=== PATIENT | male | born 1985 | race Two or more races ===

== ENCOUNTER 2019-11-15 05:59 | Emergency (ER) | payer OTHER, SELFPAY ==
--- NOTE | 2019-11-15 | XR_ITS ---
EXAMINATION: XR KNEE, LEFT CLINICAL INFORMATION: Pain, swelling left knee. COMPARISON: None TECHNIQUE: The left knee is imaged in 4 views. FINDINGS: There is no acute or healing fracture, dislocation, or destructive process. There is small suprapatellar effusion. Hoffa's fat pad appears normal. There is no joint narrowing or erosive change or chondrocalcinosis. A benign appearing nonaggressive circumscribed oval sclerotic lesion is present in the distal femur at the diaphyseal metaphyseal junction measuring 1.5 x 1.1 x 0.7 cm. There is no associated mineralization or periostitis. No surrounding lucency. IMPRESSION: 1. Small suprapatellar effusion. No fracture, destructive process, or arthropathy. 2. Benign-appearing nonaggressive oval sclerotic lesion distal femur 1.5 x 1.1 x 0.7 cm of doubtful significance. Recommend correlation with past history pain in this area.
--- NOTE | 2019-11-15 | US_ITS ---
EXAMINATION: US VENOUS ULTRASOUND WITH DOPPLER LOWER EXTREMITY, LEFT CLINICAL INFORMATION: Left lower extremity pain, swelling. Assess for occult DVT. COMPARISON: Radiographs left knee 11/15/2019 TECHNIQUE: Ultrasound of the deep veins is performed from the hip to the calf with compression sonography and color and pulse Doppler assessment. Spectral analysis with color-flow imaging is performed. FINDINGS: There is normal venous compression and respiratory variation and augmented flow. The visualized common femoral vein, superficial femoral vein, profunda femoral vein, popliteal vein, and the trifurcation region shows no evidence of deep venous thrombosis. There is incidental duplicated superficial femoral vein mid thigh. There is a popliteal fossa cyst measuring 2.0 x 3.5 x 5.0 cm. IMPRESSION: 1. No DVT demonstrated in the left lower extremity. 2. Popliteal fossa cyst measuring 2.0 x 3.5 x 5.0 cm.
[2019-11-15 06:06] VITALS: BP 155/101; PULSE 87; RESP 18; TEMP 37; O2SAT 95; BMI 33.0
--- NOTE | 2019-11-15 06:30 | ED_ITS ---
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 has pain and swelling behind left knee complaint: knee injury Onset (ago): day(s) (2 days ago) Type of Injury: blunt Place: work Severity: moderate Related Data Previous Rx's Medication Instructions Recorded cyclobenzaprine 10 mg PO Q8H PRN #20 tab 11/15/19 ibuprofen 600 mg PO Q6-8H PRN #30 tab 11/15/19 Allergies Allergy/AdvReac Type Severity Reaction Status Date / Time No Known Allergies Allergy Unverified 11/01/19 15:46 Review of Systems Review of Systems: Constitutional : No Fever, No Chills ENT/Mouth : No Ear Pain, No Hoarseness, No sore throat Eyes: No Eye Pain, No Swelling, No Redness, No Foreign Body Cardiovascular : No Chest Pain, No SOB Respiratory : No Cough, No Dyspnea Gastrointestinal : No Nausea, No Vomiting, No Diarrhea, No abdominal Pain Genitourinary : No Dysuria, No Hematuria Musculoskeletal : positive joint pain, No Myalgias, positive Joint Swelling Skin : No Skin lacerations, No rash Neuro : No Weakness, No Numbness, No Paresthesias, No Loss of Consciousness, No Dizziness, No Headache Psych : No Anxiety/Panic, No Depression Heme/Lymph: no easy bruising, no Lymphadenopathy Endocrine : No Polyuria, No Polydipsia Neurologic: Denies Sensory deficit (Neuro) [facility] Past Medical History Medical History Asthma Social History Social History Alcohol intake: current Alcohol intake frequency: a few times a week Alcohol type: beer, wine and hard liquor Smoking Status: Former smoker Smoked in Last 30 Days: No Use of substances other than those prescribed or required for medical reasons: Refusing to respond Advance Directives: No Advance Directives Information Provided: No Physical Exam Vital Signs and I&O and Narrative: Vital Signs and I&O: Vital Signs Temp 98.6 F 11/15/19 06:06 Pulse 87 11/15/19 06:06 Resp 18 11/15/19 06:06 BP 155/101 H 11/15/19 06:06 Pulse Ox 95 11/15/19 06:06 Intake & Output 11/14/19 11/15/19 11/15/19 18:59 06:59 18:59 Weight 104.326 kg Body Mass Index 33.0 Const: General: cooperative and healthy appearing; No in distress Orientation/consciousness: oriented to person, oriented to place and oriented to time HENMT: Head: Yes normal to inspection General nose exam: Normal external nose present Eyes: General: appearance normal, both eyes and all related structures Eyelids: Yes eyelids normal Neck: Neck: Yes normal visual inspection and Yes full ROM Resp: Effort & Inspection: normal respiratory effort Auscultation: clear to auscultation bilaterally Cardio: Rate: regular rate Rhythm: regular rhythm GI: Inspection: Yes normal to inspection Palpation (GI): Soft to palpation and nontender Skin: General skin exam: no rashes or lesions noted Neuro: General: oriented to person, oriented to place and oriented to time Motor exam (neuro): 5/5 motor strength present throughout Sensory Exam: No Sensory deficit (Neuro) Extrem: Other: L knee pain at medial joint line mild effusion, no erythema no warmth, small boggy area in pop fossa, erythema almost appears to be confluent like 1st degree burn or abrasion, not consistent with infection Course Course Hospital Course: small effusion, has full ROM, no DVT stable for DC, compartments are soft and compressible MDM - Extremity Injury (Lower) MDM Narrative Medical decision making narrative: L knee pain posterior aspect following repetitive movements and trauma from fork lift bench - + abrasion vs burn not infected, NV intact, but area behind knee is boggy will need xray for trauma, US to r/o DVT, PO medicatinos, dispo per results and findings Discharge Plan Discharge Clinical Impression: Abrasion Effusion into joint Qualifiers: Effusion of joint location: knee Laterality: left Qualified Code(s): M25.462 - Effusion, left knee Pradhan cyst Qualifiers: Laterality: left Qualified Code(s): M71.22 - Synovial cyst of popliteal space [Pradhan], left knee Patient Disposition: Home, Self-Care Additional Instructions: wear kit wrap for the next 5 days, ice elevated and rest Prescriptions: New cyclobenzaprine 10 mg tablet 10 mg PO Q8H PRN (Reason: muscle spasm) Qty: 20 RF: 0 ibuprofen 600 mg tablet 600 mg PO Q6-8H PRN (Reason: pain) Qty: 30 RF: 0 Referrals: Veronica Escoto [Emergency Nurse] - 2 days (if not better by Tuesday) Stand Alone Forms: Work/School Release Interventions: ED Discharge Assessment Last Done: 11/15/19 10:38 Discharge Date/Time: 11/15/19 10:45
[2019-11-15] MEDS: Cyclobenzaprine HCl 10 MG TABLET PO (06:54)
== END 2019-11-15 10:45 | disposition home or self-care (01) ==
PROVIDERS: Emergency Provider Emergency Medicine
DX: S80.212A Abrasion, left knee, initial encounter (principal); R60.0 Localized edema; M71.22 Synovial cyst of popliteal space [Baker], left knee; X50.1XXA Overexertion from prolonged static or awkward postures, initial encounter; Y93.9 Activity, unspecified; Y92.9 Unspecified place or not applicable; Y99.0 Civilian activity done for income or pay; Z87.891 Personal history of nicotine dependence
CPT/HCPCS: 73564; 93971; 99283; 99284

== ENCOUNTER 2019-11-19 07:38 | Emergency (ER) | payer OTHER, SELFPAY ==
[2019-11-19 07:55] VITALS: BP 171/114; PULSE 83; RESP 16; TEMP 36.9; O2SAT 97; BMI 33.0
--- NOTE | 2019-11-19 08:32 | ED_ITS ---
HPI - Extremity Problem General Chief complaint: Wound/Laceration Stated complaint: knee pain discolored Time Seen by Provider: 11/19/19 08:25 Source: patient Mode of arrival: ambulatory Limitations: no limitations History of Present Illness HPI Narrative: patient noticed pain with erythematous rash behind left knee for last 6 days getting worse now was seen here at that time there was no redness no redness is coming up denies any insect bite no fever also patient complaining of right sciatic pain which is chronic patient was given ibuprofen and Flexeril when he visited last time which is not helping him Related Data Previous Rx's Medication Instructions Recorded cyclobenzaprine 10 mg PO Q8H PRN #20 tab 11/15/19 ibuprofen 600 mg PO Q6-8H PRN #30 tab 11/15/19 cephalexin [Keflex] 500 mg PO QID 10 Days #40 cap 11/19/19 doxycycline hyclate 100 mg PO BID #20 cap 11/19/19 tramadol 50 mg PO Q6H PRN #20 tab 11/19/19 Allergies Allergy/AdvReac Type Severity Reaction Status Date / Time No Known Allergies Allergy Verified 11/19/19 08:34 Review of Systems 2 Review of Systems: Yes all other systems are reviewed and are negative [facility] Past Medical History Medical History Asthma No known health problems Social History Social History Alcohol intake: current Alcohol intake frequency: a few times a month Alcohol type: beer, wine and hard liquor Smoking Status: Never smoker Use of substances other than those prescribed or required for medical reasons: No Advance Directives: No Advance Directives Information Provided: No Physical Exam Vital Signs and I&O and Narrative: Vital Signs and I&O: Vital Signs Temp 98.4 F 11/19/19 07:55 Pulse 83 11/19/19 07:55 Resp 16 11/19/19 07:55 BP 171/114 H 11/19/19 07:55 Pulse Ox 97 11/19/19 07:55 Intake & Output 11/18/19 11/19/19 11/19/19 18:59 06:59 18:59 Weight 104.326 kg Body Mass Index 33.0 Const: General: cooperative Orientation/consciousness: oriented to person, oriented to place and oriented to time Resp: Effort & Inspection: normal respiratory effort Auscultation: clear to auscultation bilaterally Cardio: Palpation: normal PMI Rate: regular rate Rhythm: regular rhythm Heart sounds: S1 normal heart sound present and S2 normal heart sound present Skin: Other: slight erythema in left popliteal area with local warmth no open wound clinically cellulitis Neuro: General: oriented to person, oriented to place and oriented to time Extrem: Other: slight tenderness in right sciatic notch straight leg raising This is my quick text.is negative both extremities no motor sensory deficit patient ambulating in steady gait Discharge Plan Discharge Clinical Impression: Sciatica of right side Cellulitis Qualifiers: Site of cellulitis: extremity Site of cellulitis of extremity: lower extremity Laterality: left Qualified Code(s): L03.116 - Cellulitis of left lower limb Patient Disposition: Home, Self-Care Instructions: Cellulitis (ED), Sciatica (ED) Prescriptions: New doxycycline hyclate 100 mg capsule 100 mg PO BID Qty: 20 RF: 0 cephalexin [Keflex] 500 mg capsule 500 mg PO QID 10 Days Qty: 40 RF: 0 tramadol 50 mg tablet 50 mg PO Q6H PRN (Reason: pain) Qty: 20 RF: 0 No Action cyclobenzaprine 10 mg tablet 10 mg PO Q8H PRN (Reason: muscle spasm) Qty: 20 RF: 0 ibuprofen 600 mg tablet 600 mg PO Q6-8H PRN (Reason: pain) Qty: 30 RF: 0
[2019-11-19] MEDS: cephALEXin 500 MG CAPSULE PO (08:53)
[2019-11-19 09:19] VITALS: BP 162/115; PULSE 83
[2019-11-19] MEDS: lisinopriL 20 MG TABLET PO (09:19)
== END 2019-11-19 09:30 | disposition home or self-care (01) ==
PROVIDERS: Emergency Provider Internal Medicine
DX: L03.116 Cellulitis of left lower limb (principal); M54.42 Lumbago with sciatica, left side; M54.41 Lumbago with sciatica, right side; M25.562 Pain in left knee
CPT/HCPCS: 99283; 99284

== ENCOUNTER 2019-12-15 04:21 | Emergency (ER) | payer OTHER, SELFPAY ==
[2019-12-15 04:24] VITALS: BP 160/87; PULSE 112; RESP 18; TEMP 36.2; O2SAT 100
[2019-12-15 04:52] VITALS: PULSE 100; RESP 20; TEMP 36.9; O2SAT 96; BMI 32.3
--- NOTE | 2019-12-15 05:03 | PC.NURSE ---
20 g l ac pt marina well no complications
--- NOTE | 2019-12-15 05:12 | ECG_ITS ---
Test Reason : PALPITATIONS Blood Pressure : / mmHG Vent. Rate : 103 BPM Atrial Rate : 103 BPM P-R Int : 140 ms QRS Dur : 110 ms QT Int : 340 ms P-R-T Axes : 042 -22 021 degrees QTc Int : 445 ms Sinus tachycardia Nonspecific T wave abnormality Voltage criteria for left ventricular hypertrophy Abnormal ECG When compared with ECG of 01-JUL-2017 14:53, Heart rate has increased Nonspecific T wave abnormality is new Referred By: Jessica Hill Electronically Signed By:MEMO JOHNS MD
--- NOTE | 2019-12-15 05:12 | XR_ITS ---
EXAMINATION: XR CHEST CLINICAL INFORMATION: Cough COMPARISON: 07/01/2017 TECHNIQUE: Frontal view of the chest was obtained. FINDINGS: Cardiac leads overlie the chest. The lungs are well expanded. There is no focal consolidation, edema, or effusion. No pneumothorax. The cardiomediastinal silhouette is within normal limits. No acute osseous abnormality. XR/XR chest 1V IMPRESSION: No acute pulmonary finding.
[2019-12-15] MEDS: 0.9 % Sodium Chloride 1,000 ML 1000 ML IV (05:24)
[2019-12-15] MEDS: Magnesium Hydrox/Alum Hydrox 30 ML ORAL.SUSP PO (05:26)
[2019-12-15] MEDS: Lidocaine HCl Viscous 2 % 15 ML SOLUTION 10 ML MUCOUS MEM (05:26)
--- NOTE | 2019-12-15 05:29 | ED_ITS ---
HPI - Chest Pain General Chief Complaint: Chest Pain Stated Complaint: Dizziness/Palpitations Time Seen by Provider: 12/15/19 05:11 Source: patient Mode of arrival: ambulatory Limitations: no limitations History of Present Illness HPI narrative: This is a 33-year-old male presents with mid sternal chest discomfort that started evening after he returned from work and he states radiates into his neck but is not associated with diaphoresis, dizziness, or shortness of breath. He states the pain has been coming and going and is exacerbated by deep inspiration but not by movement. He states that the pain initially started off as pressure but has become more burning in nature. Although he describes his breath catching when he takes a deep breath he otherwise denies that he become short of breath from walking . Otherwise, he denies fevers, chills, recent travel and states his last alcoholic drink was last night and describes it as 3 shots. Otherwise, he denies any drug or marijuana use But does smoke cigarettes. Related Data Previous Rx's Medication Instructions Recorded cyclobenzaprine 10 mg PO Q8H PRN #20 tab 11/15/19 ibuprofen 600 mg PO Q6-8H PRN #30 tab 11/15/19 cephalexin [Keflex] 500 mg PO QID 10 Days #40 cap 11/19/19 doxycycline hyclate 100 mg PO BID #20 cap 11/19/19 lisinopril-hydrochlorothiazide 1 tab PO DAILY #30 tab 11/19/19 tramadol 50 mg PO Q6H PRN #20 tab 11/19/19 omeprazole 40 mg PO DAILY #30 cap 12/15/19 Allergies Allergy/AdvReac Type Severity Reaction Status Date / Time No Known Allergies Allergy Verified 11/19/19 08:34 Review of Systems Review of Systems: Pertinent positives and negatives as stated in HPI 10 point review of systems is otherwise negative. [facility] Past Medical History Source: nursing notes reviewed Medical History Asthma No known health problems Social History Social History Alcohol intake: current Alcohol intake frequency: 3 or more drinks per day Alcohol type: hard liquor Smoking Status: Current every day smoker Smoked in Last 30 Days: Yes Use of substances other than those prescribed or required for medical reasons: No Advance Directives: No Advance Directives Information Provided: No Physical Exam Vital Signs: Vital Signs: Vital Signs Temp Pulse Resp BP Pulse Ox 12/15/19 04:52 98.4 F 100 20 96 12/15/19 04:24 97.2 F 112 H 18 160/87 H 100 Body Mass Index 32.3 VITAL SIGNS: Reviewed. GENERAL: Well developed, well nourished, in no acute distress. HEAD: Normocephalic/atraumatic, EYES: PERRLA, EOMI intact without pain, no nystagmus/pallor/icterus noted EARS: Ext canals without abnormality, TMs non-bulging and non-erythematous NOSE: Nares patent bilateral OROPHARYNX: no oral lesions noted, posterior pharynx clear and non-erythematous without noted tonsillar enlargement/erythema/exudates NECK: Supple, no adenopathy LUNGS: Normal breath sounds. No adventitious sounds or accessory muscle use. SpO2<100> CARDIOVASCULAR: Regular rate and rhythm without noted murmurs, no JVD or lower extremity edema. ABDOMEN: Soft, non-tender, non-distended with bowel sounds. No rigidity. No guarding. No palpable masses or hernias noted MUSCULOSKELETAL: No tenderness, deformities, or effusions noted on gross inspection. EXTREMITIES: No cyanosis, clubbing or edema. SKIN: Inspection of the skin reveals no rashes, ulcerations, jaundice, pallor, or petechiae. NEUROLOGIC: Alert and oriented x 4. Strength and sensation to light touch were grossly intact x 4. Course Course Course Narrative: Is a 33-year-old male with history and clinical presentation consistent with most likely acid reflux/ gastritis/or pancreatiist but will rule out pneumonia, PE, ischemic cardiac etiologies. On review of all investigations there is no evidence to suggest pneumonia, pancreatitis, PE, or ischemic cardiac etiology. Suspect that this may be gastritis in etiology. All results and findings were discussed with patient at bedside. He was encouraged to follow up with his primary care provider and is declined detox at this time. MDM - Chest Pain Lab Data Result diagrams: 12/15/19 05:53 12/15/19 05:53 Labs: Lab Results 12/15/19 12/15/19 12/15/19 Range/Units 05:53 05:53 05:53 WBC 10.7 (4.8-10.8) X10*3/uL RBC 4.61 (4.60-5.80) X10*6/uL Hgb 15.7 (14.0-18.0) g/dl Hct 43.1 (42-52) % MCV 93.5 (80-98) fL MCH 34.1 H (27.0-33.0) pg MCHC 36.4 H (31.0-36.0) g/dl RDW 11.3 (11.0-16.0) % Plt Count 327 (160-400) X10*3/uL MPV 10.9 (9.4-12.4) fL Immature Gran % (Auto) 0.4 (0.0-0.4) % Neut % (Auto) 46.4 (45-73) % Lymph % (Auto) 44.7 H (20-40) % [place] % (Auto) 7.3 (2-11) % Eos % (Auto) 0.7 (0-4) % Baso % (Auto) 0.5 (0-2) % Lymph # (Auto) 4.8 (1.2-4.9) X10*3/uL [place] # (Auto) 0.8 (0.1-1.2) X10*3/uL Eos # (Auto) 0.1 (0.0-0.4) X10*3/uL Baso # (Auto) 0.1 (0.0-0.2) X10*3/uL Abs Immat Gran (auto) 0.04 H (0.00-0.03) X10*3/uL Absolute Neuts (auto) 5.0 (2.0-8.3) X10*3/uL Absolute Nucleated RBC 0.000 (0.0-0.012) X10*3/uL Nucleated RBC % (auto) 0.0 (0.0-0.2) /100WBC D-Dimer NG/ML Sodium 136 (135-145) mmol/L Potassium 3.6 (3.3-5.1) mmol/l Chloride 98 (96-108) mmol/L Carbon Dioxide 26 (22-29) mmol/L Anion Gap 16 (12-20) BUN 13 (9-16) mg/dL Creatinine 0.81 (0.5-1.4) mg/dL Estim Creat Clear Calc 158.1 Estimated GFR > 60 Random Glucose 74 (60-115) mg/dL Calcium 9.0 (8.4-10.2) mg/dL Magnesium 2.2 (1.6-2.6) mg/dL Total Bilirubin 0.7 (0.0-1.0) mg/dL AST 44 H (5-37) U/L ALT 73 H (0-40) U/L Alkaline Phosphatase 45 (39-117) U/L Troponin I High Sens (<3.5-35.0) ng/L Total Protein 8.5 H (6.5-8.0) g/dL Albumin 4.8 (3.5-5.0) g/dL Lipase 60 (8-78) U/L Ethyl Alcohol mg/dL 12/15/19 12/15/19 12/15/19 Range/Units 05:53 05:53 05:53 WBC (4.8-10.8) X10*3/uL RBC (4.60-5.80) X10*6/uL Hgb (14.0-18.0) g/dl Hct (42-52) % MCV (80-98) fL MCH (27.0-33.0) pg MCHC (31.0-36.0) g/dl RDW (11.0-16.0) % Plt Count (160-400) X10*3/uL MPV (9.4-12.4) fL Immature Gran % (Auto) (0.0-0.4) % Neut % (Auto) (45-73) % Lymph % (Auto) (20-40) % [place] % (Auto) (2-11) % Eos % (Auto) (0-4) % Baso % (Auto) (0-2) % Lymph # (Auto) (1.2-4.9) X10*3/uL [place] # (Auto) (0.1-1.2) X10*3/uL Eos # (Auto) (0.0-0.4) X10*3/uL Baso # (Auto) (0.0-0.2) X10*3/uL Abs Immat Gran (auto) (0.00-0.03) X10*3/uL Absolute Neuts (auto) (2.0-8.3) X10*3/uL Absolute Nucleated RBC (0.0-0.012) X10*3/uL Nucleated RBC % (auto) (0.0-0.2) /100WBC D-Dimer < 200 NG/ML Sodium (135-145) mmol/L Potassium (3.3-5.1) mmol/l Chloride (96-108) mmol/L Carbon Dioxide (22-29) mmol/L Anion Gap (12-20) BUN (9-16) mg/dL Creatinine (0.5-1.4) mg/dL Estim Creat Clear Calc Estimated GFR Random Glucose (60-115) mg/dL Calcium (8.4-10.2) mg/dL Magnesium (1.6-2.6) mg/dL Total Bilirubin (0.0-1.0) mg/dL AST (5-37) U/L ALT (0-40) U/L Alkaline Phosphatase (39-117) U/L Troponin I High Sens < 3.5 (<3.5-35.0) ng/L Total Protein (6.5-8.0) g/dL Albumin (3.5-5.0) g/dL Lipase (8-78) U/L Ethyl Alcohol 201 mg/dL ECG Data ECG #1: Prior ECG tracings: available for review ( 07/01/2017 without acute changes) Interpretation: Normal sinus rhythm, HR - 103, no evidence of ischemia, VT/ QTC are within normal limits. Discharge Plan Discharge Clinical Impression: Gastritis Qualifiers: Gastritis type: alcoholic Chronicity: acute Gastritis bleeding: without bleeding Qualified Code(s): K29.20 - Alcoholic gastritis without bleeding Patient Disposition: Home, Self-Care Instructions: Gastritis (ED), Diet for Stomach Ulcers and Gastritis (ED) Additional Instructions: The patient and/or family acknowledge understanding of results (as applicable), diagnosis, treatment plan, need for follow up, and symptoms that should prompt a return to the emergency room. Prescriptions: New omeprazole 40 mg capsule,delayed release(DR/EC) 40 mg PO DAILY Qty: 30 RF: 0 No Action doxycycline hyclate 100 mg capsule 100 mg PO BID Qty: 20 RF: 0 cephalexin [Keflex] 500 mg capsule 500 mg PO QID 10 Days Qty: 40 RF: 0 tramadol 50 mg tablet 50 mg PO Q6H PRN (Reason: pain) Qty: 20 RF: 0 lisinopril-hydrochlorothiazide 20-25 mg tablet 1 tab PO DAILY Qty: 30 RF: 1 cyclobenzaprine 10 mg tablet 10 mg PO Q8H PRN (Reason: muscle spasm) Qty: 20 RF: 0 ibuprofen 600 mg tablet 600 mg PO Q6-8H PRN (Reason: pain) Qty: 30 RF: 0 Referrals: Physician,Unknown [Primary Care Provider] - 2 days ( gastritis)
[2019-12-15 05:59] LABS: Basophils Absolute Auto 0.1 X10*3/uL (0.0-0.2); Basophils Percent Auto 0.5 % (0-2); Eosinophils Absolute Auto 0.1 X10*3/uL (0.0-0.4); Eosinophils Percent Auto 0.7 % (0-4); Hematocrit 43.1 % (42-52); Hemoglobin 15.7 g/dl (14.0-18.0); Imm Gran Abs Auto 0.04 X10*3/uL (0.00-0.03); Imm Gran Pct Auto 0.4 % (0.0-0.4); Lymphocytes Absolute Auto 4.8 X10*3/uL (1.2-4.9); Lymphocytes Percent Auto 44.7 % (20-40); MANUAL DIFF FLAG NO; Mean Corpuscular HGB Conc 36.4 g/dl (31.0-36.0); Mean Corpuscular Hemoglobin 34.1 pg (27.0-33.0); Mean Corpuscular Volume 93.5 fL (80-98); Mean Platelet Volume 10.9 fL (9.4-12.4); Monocytes Absolute Auto 0.8 X10*3/uL (0.1-1.2); Monocytes Percent Auto 7.3 % (2-11); Neutrophils Percent Auto 46.4 % (45-73); Platelet Count 327 X10*3/uL (160-400); Red Blood Count 4.61 X10*6/uL (4.60-5.80); Red Cell Distribution Width 11.3 % (11.0-16.0); White Blood Count 10.7 X10*3/uL (4.8-10.8)
[2019-12-15 06:00] VITALS: BP 119/83; PULSE 79; RESP 16; TEMP 36.5; O2SAT 97
[2019-12-15 06:09] LABS: D Dimer < 200 NG/ML
[2019-12-15 06:18] LABS: Ethanol 201 mg/dL
[2019-12-15 06:21] LABS: Lipase 60 U/L (8-78); Magnesium 2.2 mg/dL (1.6-2.6)
[2019-12-15 06:22] LABS: Alanine Aminotransferase 73 U/L (0-40); Albumin Level 4.8 g/dL (3.5-5.0); Alkaline Phosphatase 45 U/L (39-117); Anion Gap 16 (12-20); Aspartate Amino Transferase 44 U/L (5-37); Bilirubin Total 0.7 mg/dL (0.0-1.0); Blood Urea Nitrogen 13 mg/dL (9-16); Carbon Dioxide 26 mmol/L (22-29); Chloride 98 mmol/L (96-108); Creatinine Clr Calc Pharmacy 158.1; Estimated Glomerular Filt Rate > 60; Glucose Random 74 mg/dL (60-115); Potassium 3.6 mmol/l (3.3-5.1); Sodium 136 mmol/L (135-145); Total Protein 8.5 g/dL (6.5-8.0)
[2019-12-15 06:25] LABS: Troponin-I High Sensitivity < 3.5 ng/L (<3.5-35.0)
--- NOTE | 2019-12-15 06:39 | PC.NURSE ---
pt states he still has dizziness, pain to chest is nonrad 08/23
[2019-12-15 08:01] LABS: Glucose Urine UA NEG (NEG); Leukocyte Esterase Urine NEG (NEG); Nitrite Urine NEG (NEG); PH 5.5 (5.0-8.0); Specific Gravity - Urine <= 1.005 (1.005-1.025); Urine Blood NEG (NEG); Urine Ketones NEG (NEG); Urine Protein NEG (NEG-TRACE)
[2019-12-15 08:05] LABS: Appearance Urine CLEAR; Color Urine STRAW
[2019-12-15 08:38] LABS: Amphetamine Screen Urine Not Detected (Not Detect); Barbiturates, Urine Not Detected (Not Detect); Benzodiazepines Screen Urine Not Detected (Not Detect); Cannabinoid Screen Urine Not Detected (Not Detect); Cocaine Screen Urine Not Detected (Not Detect); Opiate Screen Urine Not Detected (Not Detect); Phencyclidine Screen Urine Not Detected (Not Detect)
== END 2019-12-15 07:05 | disposition home or self-care (01) ==
PROVIDERS: Emergency Provider Student in an Organized Health Care Education/Training Program
DX: K29.20 Alcoholic gastritis without bleeding (principal); R07.9 Chest pain, unspecified; F17.200 Nicotine dependence, unspecified, uncomplicated; F10.129 Alcohol abuse with intoxication, unspecified; Y90.7 Blood alcohol level of 200-239 mg/100 ml; Z71.6 Tobacco abuse counseling; Z79.899 Other long term (current) drug therapy
CPT/HCPCS: 36415; 71045; 80053; 80307; 80320; 81003; 83690; 83735; 84484; 85025; 85379; 93005; 96360; 99284; 99285

== ENCOUNTER 2019-12-19 08:59 | Emergency (ER) | payer OTHER, SELFPAY ==
--- NOTE | 2019-12-19 | ECG_ITS ---
Test Reason : CHEST PAIN Blood Pressure : / mmHG Vent. Rate : 066 BPM Atrial Rate : 066 BPM P-R Int : 144 ms QRS Dur : 098 ms QT Int : 388 ms P-R-T Axes : 029 -14 -04 degrees QTc Int : 406 ms Normal sinus rhythm Left axis deviation Moderate voltage criteria for LVH, may be normal variant Borderline ECG When compared with ECG of 15-DEC-2019 04:34, Vent. rate has decreased BY 37 BPM Referred By: Generic ED Physician Electronically Signed By:MEMO JOHNS MD
--- NOTE | 2019-12-19 09:14 | ED_ITS ---
HPI - Chest Pain General Chief Complaint: General Medical Stated Complaint: chest and back pain Time Seen by Provider: 12/19/19 09:14 Source: patient Mode of arrival: ambulatory Limitations: no limitations History of Present Illness MD complaint: chest pain Onset (ago): day(s) (6) Timing of current episode: constant Prior episodes: No Onset: during rest Pain location: substernal Pain radiation: none Severity: moderate Quality: heaviness Relieving factors: nothing Exacerbating factors: inspiration and movement Treatment prior to arrival: other (has been taking antacid) Related Data Previous Rx's Medication Instructions Recorded cyclobenzaprine 10 mg PO Q8H PRN #20 tab 11/15/19 ibuprofen 600 mg PO Q6-8H PRN #30 tab 11/15/19 cephalexin [Keflex] 500 mg PO QID 10 Days #40 cap 11/19/19 doxycycline hyclate 100 mg PO BID #20 cap 11/19/19 lisinopril-hydrochlorothiazide 1 tab PO DAILY #30 tab 11/19/19 tramadol 50 mg PO Q6H PRN #20 tab 11/19/19 omeprazole 40 mg PO DAILY #30 cap 12/15/19 cyclobenzaprine 10 mg PO TID PRN #14 tab 12/19/19 prednisone 40 mg PO DAILY 5 Days #10 tab 12/19/19 Allergies Allergy/AdvReac Type Severity Reaction Status Date / Time No Known Allergies Allergy Verified 11/19/19 08:34 Review of Systems Review of Systems: Constitutional : No Weight loss, No Fever, No Chills ENT/Mouth : No sore throat, No Rhinorrhea Eyes: No Eye Pain, No Swelling Cardiovascular : pos Chest Pain, no SOB, no Dyspnea on Exertion, No Orthopnea, No Edema, No Palpitations Respiratory : No Cough, No Sputum Gastrointestinal : pos Nausea, No Vomiting, No Diarrhea, No abdominal Pain, No Hematochezia, No Melena Genitourinary : No Dysuria, No Urinary Frequency Musculoskeletal : No joint pain, No Myalgias, No Joint Swelling Skin : No Skin Lesions, No rash Neuro : No Weakness, No Numbness, No Dizziness, No Headache Psych : No Anxiety/Panic, No Depression Heme/Lymph: No Bruising, No Lymphadenopathy Endocrine : No Polyuria, No Polydipsia All other systems reviewed and are negative PMFSH Past Medical History Medical History Asthma No known health problems Social History Social History Alcohol intake: current Alcohol intake frequency: a few times a month Alcohol type: hard liquor Smoking Status: Current every day smoker Use of substances other than those prescribed or required for medical reasons: No Advance Directives: No Advance Directives Information Provided: Yes Physical Exam Vital Signs: Vital Signs: Vital Signs Temp Pulse Resp BP Pulse Ox 12/19/19 09:56 65 16 145/95 H 97 12/19/19 09:18 97.5 F 64 16 144/100 H 98 Body Mass Index 31.5 Appearance: Alert. Oriented X3. No acute distress. Eyes: Pupils equal, round and reactive to light. ENT: Pharynx normal. Neck: Normal inspection. Neck supple. CVS: Normal heart rate and rhythm. Pulses normal. chest nontender Respiratory: No respiratory distress. Breath sounds normal. Abdomen: Soft and nontender. Skin: Skin warm and dry. Normal skin color. Normal skin turgor. Extremities: No lower extremity edema. No calf ttp Neuro: Oriented X 3. No motor deficit. No sensory deficit. Course Course Course Narrative: no acute findings, stable for DC at this time, has no RUQ pain or Robertson's sign on exam, in case of costochondritis will start on steroids MDM - Chest Pain MDM Narrative Medical decision making narrative: 33 yo male PERC negative, no significant ACS risk factors just seen 12/14 with negative troponin, EKG, ddimer - still complain of chest pain radiating to back at this time will obtain EKG, troponin x 1, CTA for dissection given degree of reported pain and persistence, he also drinks daily and this could be ETOH gastritis/esophagitis, dispo per results and findings. Lab Data Result diagrams: 12/19/19 10:10 12/19/19 10:10 Labs: Lab Results 12/19/19 12/19/19 12/19/19 Range/Units 10:10 10:10 10:10 WBC 7.5 (4.8-10.8) X10*3/uL RBC 3.98 L (4.60-5.80) X10*6/uL Hgb 13.6 L (14.0-18.0) g/dl Hct 36.9 L (42-52) % MCV 92.7 (80-98) fL MCH 34.2 H (27.0-33.0) pg MCHC 36.9 H (31.0-36.0) g/dl RDW 11.3 (11.0-16.0) % Plt Count 245 D (160-400) X10*3/uL MPV 11.1 (9.4-12.4) fL Immature Gran % (Auto) 0.4 (0.0-0.4) % Neut % (Auto) 54.5 (45-73) % Lymph % (Auto) 35.9 (20-40) % [place] % (Auto) 7.4 (2-11) % Eos % (Auto) 1.3 (0-4) % Baso % (Auto) 0.5 (0-2) % Lymph # (Auto) 2.7 (1.2-4.9) X10*3/uL [place] # (Auto) 0.6 (0.1-1.2) X10*3/uL Eos # (Auto) 0.1 (0.0-0.4) X10*3/uL Baso # (Auto) 0.0 (0.0-0.2) X10*3/uL Abs Immat Gran (auto) 0.03 (0.00-0.03) X10*3/uL Absolute Neuts (auto) 4.1 (2.0-8.3) X10*3/uL Absolute Nucleated RBC 0.000 (0.0-0.012) X10*3/uL Nucleated RBC % (auto) 0.0 (0.0-0.2) /100WBC Hold Blue Top SEE NOTE Sodium 136 (135-145) mmol/L Potassium 4.0 (3.3-5.1) mmol/l Chloride 103 (96-108) mmol/L Carbon Dioxide 25 (22-29) mmol/L Anion Gap 12 (12-20) BUN 16 (9-16) mg/dL Creatinine 0.71 (0.5-1.4) mg/dL Estim Creat Clear Calc 178.5 Estimated GFR > 60 Random Glucose 102 D (60-115) mg/dL Calcium 8.4 (8.4-10.2) mg/dL Magnesium 1.9 (1.6-2.6) mg/dL Total Bilirubin 0.6 (0.0-1.0) mg/dL Direct Bilirubin 0.3 (0.0-0.5) mg/dL AST 30 (5-37) U/L ALT 61 H (0-40) U/L Alkaline Phosphatase 43 (39-117) U/L Troponin I High Sens (<3.5-35.0) ng/L Total Protein 7.5 (6.5-8.0) g/dL Albumin 4.3 (3.5-5.0) g/dL Lipase 66 (8-78) U/L 12/19/19 Range/Units 10:10 WBC (4.8-10.8) X10*3/uL RBC (4.60-5.80) X10*6/uL Hgb (14.0-18.0) g/dl Hct (42-52) % MCV (80-98) fL MCH (27.0-33.0) pg MCHC (31.0-36.0) g/dl RDW (11.0-16.0) % Plt Count (160-400) X10*3/uL MPV (9.4-12.4) fL Immature Gran % (Auto) (0.0-0.4) % Neut % (Auto) (45-73) % Lymph % (Auto) (20-40) % [place] % (Auto) (2-11) % Eos % (Auto) (0-4) % Baso % (Auto) (0-2) % Lymph # (Auto) (1.2-4.9) X10*3/uL [place] # (Auto) (0.1-1.2) X10*3/uL Eos # (Auto) (0.0-0.4) X10*3/uL Baso # (Auto) (0.0-0.2) X10*3/uL Abs Immat Gran (auto) (0.00-0.03) X10*3/uL Absolute Neuts (auto) (2.0-8.3) X10*3/uL Absolute Nucleated RBC (0.0-0.012) X10*3/uL Nucleated RBC % (auto) (0.0-0.2) /100WBC Hold Blue Top Sodium (135-145) mmol/L Potassium (3.3-5.1) mmol/l Chloride (96-108) mmol/L Carbon Dioxide (22-29) mmol/L Anion Gap (12-20) BUN (9-16) mg/dL Creatinine (0.5-1.4) mg/dL Estim Creat Clear Calc Estimated GFR Random Glucose (60-115) mg/dL Calcium (8.4-10.2) mg/dL Magnesium (1.6-2.6) mg/dL Total Bilirubin (0.0-1.0) mg/dL Direct Bilirubin (0.0-0.5) mg/dL AST (5-37) U/L ALT (0-40) U/L Alkaline Phosphatase (39-117) U/L Troponin I High Sens < 3.5 (<3.5-35.0) ng/L Total Protein (6.5-8.0) g/dL Albumin (3.5-5.0) g/dL Lipase (8-78) U/L ECG Data ECG #1: Attestation: I personally reviewed and interpreted this ECG as follows: ECG interpretation date: 12/19/19 ECG interpretation time: 09:15 Interpretation: Rate: 66 Rhythm: NSR [place]: left, LVH Normal P waves. Normal JOSIE. Normal QRS complex. ST T wave : normal qTC:normal prior studies: no acute ischemia The study has been interpreted contemporaneously by me. . Discharge Plan Discharge Clinical Impression: Atypical chest pain Patient Disposition: Home, Self-Care Instructions: Chest Pain (ED) Additional Instructions: return to ED for any worsening symptoms or concerns Prescriptions: New cyclobenzaprine 10 mg tablet 10 mg PO TID PRN (Reason: muscle spasm) Qty: 14 RF: 0 prednisone 20 mg tablet 40 mg PO DAILY 5 Days Qty: 10 RF: 0 No Action doxycycline hyclate 100 mg capsule 100 mg PO BID Qty: 20 RF: 0 cephalexin [Keflex] 500 mg capsule 500 mg PO QID 10 Days Qty: 40 RF: 0 tramadol 50 mg tablet 50 mg PO Q6H PRN (Reason: pain) Qty: 20 RF: 0 lisinopril-hydrochlorothiazide 20-25 mg tablet 1 tab PO DAILY Qty: 30 RF: 1 omeprazole 40 mg capsule,delayed release(DR/EC) 40 mg PO DAILY Qty: 30 RF: 0 cyclobenzaprine 10 mg tablet 10 mg PO Q8H PRN (Reason: muscle spasm) Qty: 20 RF: 0 ibuprofen 600 mg tablet 600 mg PO Q6-8H PRN (Reason: pain) Qty: 30 RF: 0 Referrals: Physician,None [Primary Care Provider] - 2 days (call your primary care doctor) Stand Alone Forms: Work/School Release
[2019-12-19 09:18] VITALS: BP 144/100; PULSE 64; RESP 16; TEMP 36.4; O2SAT 98; BMI 31.5
--- NOTE | 2019-12-19 09:28 | CT_ITS ---
EXAMINATION: CT ANGIOGRAM CHEST CLINICAL INFORMATION: Chest and back pain COMPARISON: None TECHNIQUE: Multiple axial images were obtained through the chest after the administration of 71 mL of Omnipaque 350 intravenous contrast. Extensive vascular post-processing including two-dimensional and three-dimensional reformatted images were created and reviewed on an independent workstation. This CT examination was performed using dose optimization techniques as appropriate, variously including the following: *Automated exposure control *Adjustment of mA and/or kV according to patient size (this includes techniques or standardized protocols for targeted exams where dose is matched to indication/reason for exam; i.e. extremities or head) *Use of iterative reconstruction technique DLP: 433 mGy-cm FINDINGS: There is good opacification of pulmonary artery and is branches without any intraluminal filling defect. The thoracic aorta is of normal caliber. There is normal thoracic aortic branch. The heart size is normal. The central trachea and the bronchi widely patent. No pericardial effusion or abnormal mediastinal lymph nodes or mass seen. The lungs are well-expanded and clear of acute pneumonic process. No pulmonary nodule, mass or consolidation seen. There is no bilateral pleural effusions or thickening. The axilla and chest wall appears unremarkable. Imaging through the upper abdomen reveals visualized liver, spleen, pancreas and bilateral adrenal glands are unremarkable. Suspect small radiopaque gallstone. Bone windows reveal no lytic or sclerotic process. CT/CT angio chest IMPRESSION: No evidence of PE. No evidence of aortic dissection or aneurysm. The lungs are clear. Suspect gallstone.
[2019-12-19 09:56] VITALS: BP 145/95; PULSE 65; RESP 16; O2SAT 97
[2019-12-19 10:14] LABS: MANUAL DIFF FLAG NO
[2019-12-19 10:26] LABS: Basophils Percent Auto 0.5 % (0-2); Eosinophils Absolute Auto 0.1 X10*3/uL (0.0-0.4); Eosinophils Percent Auto 1.3 % (0-4); Hematocrit 36.9 % (42-52); Hemoglobin 13.6 g/dl (14.0-18.0); Imm Gran Abs Auto 0.03 X10*3/uL (0.00-0.03); Imm Gran Pct Auto 0.4 % (0.0-0.4); Lymphocytes Absolute Auto 2.7 X10*3/uL (1.2-4.9); Lymphocytes Percent Auto 35.9 % (20-40); Mean Corpuscular HGB Conc 36.9 g/dl (31.0-36.0); Mean Corpuscular Hemoglobin 34.2 pg (27.0-33.0); Mean Corpuscular Volume 92.7 fL (80-98); Mean Platelet Volume 11.1 fL (9.4-12.4); Monocytes Absolute Auto 0.6 X10*3/uL (0.1-1.2); Monocytes Percent Auto 7.4 % (2-11); Neutrophils Absolute Auto 4.1 X10*3/uL (2.0-8.3); Neutrophils Percent Auto 54.5 % (45-73); Platelet Count 245 X10*3/uL (160-400); Red Blood Count 3.98 X10*6/uL (4.60-5.80); Red Cell Distribution Width 11.3 % (11.0-16.0); White Blood Count 7.5 X10*3/uL (4.8-10.8)
[2019-12-19 10:50] LABS: Alanine Aminotransferase 61 U/L (0-40); Albumin Level 4.3 g/dL (3.5-5.0); Alkaline Phosphatase 43 U/L (39-117); Anion Gap 12 (12-20); Aspartate Amino Transferase 30 U/L (5-37); Bilirubin Direct 0.3 mg/dL (0.0-0.5); Bilirubin Total 0.6 mg/dL (0.0-1.0); Blood Urea Nitrogen 16 mg/dL (9-16); Calcium 8.4 mg/dL (8.4-10.2); Carbon Dioxide 25 mmol/L (22-29); Chloride 103 mmol/L (96-108); Creatinine Clr Calc Pharmacy 178.5; Estimated Glomerular Filt Rate > 60; Glucose Random 102 mg/dL (60-115); Lipase 66 U/L (8-78); Magnesium 1.9 mg/dL (1.6-2.6); Sodium 136 mmol/L (135-145); Total Protein 7.5 g/dL (6.5-8.0)
[2019-12-19 11:03] LABS: Troponin-I High Sensitivity < 3.5 ng/L (<3.5-35.0)
[2019-12-19] MEDS: iohexoL 350 MG/ML 100 ML INFUS..BTL 71 ML IV (11:35)
[2019-12-19 11:58] VITALS: BP 137/85; PULSE 62; RESP 14; O2SAT 99
== END 2019-12-19 12:11 | disposition home or self-care (01) ==
PROVIDERS: Emergency Provider Emergency Medicine
DX: R07.89 Other chest pain (principal); M54.5 Low back pain; F17.210 Nicotine dependence, cigarettes, uncomplicated; Z71.6 Tobacco abuse counseling
CPT/HCPCS: 36415; 71275; 80048; 80076; 83690; 83735; 84484; 85025; 93005; 99284; 99285; Q9967

== ENCOUNTER 2020-01-11 23:14 | Emergency (ER) | payer OTHER, SELFPAY ==
[2020-01-11 23:22] VITALS: BP 164/104; PULSE 98; RESP 20; TEMP 37.7; O2SAT 96; BMI 32.3
--- NOTE | 2020-01-11 23:39 | ED_ITS ---
HPI - Medical Clearance General Chief complaint: Medical Clearance Stated complaint: Covid symptoms Time Seen by Provider: 01/11/20 23:36 Source: patient Mode of arrival: ambulatory Limitations: no limitations History of Present Illness HPI Narrative: 34-year-old male here with body aches, chills, tactile temp since last evening. Patient tells me he was exposed to COVID positive coworkers this past week. Onset (ago): day(s) Reason for Medical Clearance: other (exposure to covid ) Place: work Associated Symptoms: denies other symptoms Treatments Prior to Arrival: none Related Information Previous Rx's Medication Instructions Recorded cyclobenzaprine 10 mg PO Q8H PRN #20 tab 11/15/19 ibuprofen 600 mg PO Q6-8H PRN #30 tab 11/15/19 cephalexin [Keflex] 500 mg PO QID 10 Days #40 cap 11/19/19 doxycycline hyclate 100 mg PO BID #20 cap 11/19/19 lisinopril-hydrochlorothiazide 1 tab PO DAILY #30 tab 11/19/19 tramadol 50 mg PO Q6H PRN #20 tab 11/19/19 omeprazole 40 mg PO DAILY #30 cap 12/15/19 cyclobenzaprine 10 mg PO TID PRN #14 tab 12/19/19 prednisone 40 mg PO DAILY 5 Days #10 tab 12/19/19 Allergies Allergy/AdvReac Type Severity Reaction Status Date / Time No Known Allergies Allergy Verified 11/19/19 08:34 Review of Systems Review of Systems: Yes all other systems are reviewed and are negative Constitutional: Constitutional: Reports no additional constitutional complaints, Reports body ache(s), Reports chills, Reports fever(s), Denies headache(s) and Denies weakness Eyes: Eyes: Reports no additional eye complaints and Denies change in vision ENT: Reports system reviewed and no additional complaints, except as documented, Denies dizziness, Denies headache(s), Denies nasal congestion, Denies nasal discharge and Denies neck pain Cardiovascular: Cardiovascular: Reports no additional cardiovascular complaints, Denies chest pain, Denies leg edema and Denies dyspnea Respiratory: Respiratory: Reports no additional respiratory complaints, Denies cough and Denies dyspnea Gastrointestinal: Gastrointestinal: Reports no additional gastrointestinal complaints, Denies abdominal pain, Denies diarrhea, Denies nausea and Denies vomiting Genitourinary: Genitourinary: Denies urinary incontinence Musculoskeletal: Musculoskeletal: Reports no additional musculoskeletal complaints, Denies back pain, Denies arthralgias, Denies joint swelling, Denies neck pain, Denies numbness and Denies tingling Integumentary/Breasts: Skin/Breast: Reports system reviewed and no additional complaints, except as docu and Denies rash Neurologic: Reports system reviewed and no additional complaints, except as documented, Denies Abnormal speech present, Denies dizziness, Denies headache(s), Denies numbness, Denies tingling and Denies weakness [facility] Past Medical History Attestation statement: The following information was validated with the patient. Source: old records reviewed and nursing notes reviewed Medical History Asthma No known health problems Social History Social History Alcohol intake: current Alcohol intake frequency: a few times a month Alcohol type: hard liquor Smoking Status: Current every day smoker Advance Directives: No Physical Exam Vital Signs: Vital Signs: Last Vital Signs Temp 99.8 F 01/11/20 23:22 Pulse 98 01/11/20 23:22 Resp 20 01/11/20 23:22 BP 164/104 H 01/11/20 23:22 Pulse Ox 96 01/11/20 23:22 Body Mass Index 32.3 Const: General: cooperative, healthy appearing, comfortable and no acute distress Orientation/consciousness: patient oriented x3 Limitations: no limitations HENMT: Head: Yes normal to inspection Ears: hearing grossly normal bilaterally General nose exam: Normal external nose present Face and sinus: Yes normal facial exam Mouth: Normal oral and palatal mucosa present Throat: Yes posterior oropharynx normal Eyes: General: appearance normal, both eyes and all related structures Pupils: Equal, round and reactive pupils present Neck: Neck: Yes normal visual inspection Chest: Chest palpation & inspection: normal inspection of the chest Resp: Effort & Inspection: normal respiratory effort Auscultation: clear to auscultation bilaterally Cardio: Rate: regular rate Rhythm: regular rhythm Peripheral pulses: Peripheral pulses 2+ throughout GI: Inspection: Yes normal to inspection Palpation (GI): Soft to palpation and nontender Auscultation: normal bowel sounds Back/Spine/Pelvis: Thoracic/Lumbar Spine: thoracic and lumbar spine normal to inspection Skin: General skin exam: no rashes or lesions noted Neuro: General: patient oriented x3, no focal motor deficits and normal sensation to monofilament Cranial nerves: Yes Equal, round and reactive pupils present Cognition (Neuro): normal cognition Speech: No Abnormal speech present Gait exam (Neuro): Normal gait present Motor exam (neuro): 5/5 motor strength present throughout Extrem: General: Yes normal to inspection Course Course Course Narrative: flu-like symptoms for few days. COVID testing positive here in the ER. Stable vital signs, afebrile, well appearing. Reviewed worrisome signs symptoms and when to return to the emergency department. Comfortable discharge home. MDM - Medical Clearance Medical Records Attestation: I reviewed the patient's medical records. Lab Data Attestation: I reviewed the patient's lab results. Labs: Lab Results 01/11/20 Range/Units 23:47 Coronavirus (PCR) POSITIVE A (Negative) Influenza Type A (PCR) NEGATIVE (Negative) Influenza Type B (PCR) NEGATIVE (Negative) RSV RNA Qual (PCR) NEGATIVE (Negative) Discharge Plan Discharge Clinical Impression: COVID-19 Patient Disposition: Home, Self-Care Instructions: COVID-19 (Coronavirus Disease 2019) (ED) Additional Instructions: You were positive for COVID-19. You must self quarantine for total of 14 days Take Motrin or Tylenol if able as needed for pain or fever Increase fluids, rest Prescriptions: No Action doxycycline hyclate 100 mg capsule 100 mg PO BID Qty: 20 RF: 0 cephalexin [Keflex] 500 mg capsule 500 mg PO QID 10 Days Qty: 40 RF: 0 tramadol 50 mg tablet 50 mg PO Q6H PRN (Reason: pain) Qty: 20 RF: 0 lisinopril-hydrochlorothiazide 20-25 mg tablet 1 tab PO DAILY Qty: 30 RF: 1 omeprazole 40 mg capsule,delayed release(DR/EC) 40 mg PO DAILY Qty: 30 RF: 0 cyclobenzaprine 10 mg tablet 10 mg PO TID PRN (Reason: muscle spasm) Qty: 14 RF: 0 prednisone 20 mg tablet 40 mg PO DAILY 5 Days Qty: 10 RF: 0 cyclobenzaprine 10 mg tablet 10 mg PO Q8H PRN (Reason: muscle spasm) Qty: 20 RF: 0 ibuprofen 600 mg tablet 600 mg PO Q6-8H PRN (Reason: pain) Qty: 30 RF: 0 Referrals: Physician,Unknown [Primary Care Provider] - 2 days Stand Alone Forms: Work/School Release Interventions: ED Discharge Assessment Last Done: 01/12/20 00:59 Discharge Date/Time: 01/12/20 01:00
[2020-01-12 00:33] LABS: Influenza A PCR NEGATIVE (Negative); Influenza B PCR NEGATIVE (Negative); Resp Syncy Virus RNA Qual PCR NEGATIVE (Negative)
[2020-01-12 00:38] LABS: SARS COV2 PCR INHOUSE POSITIVE (Negative)
== END 2020-01-12 01:00 | disposition home or self-care (01) ==
PROVIDERS: Nurse Practitioner Family; Emergency Provider Emergency Medicine
DX: U07.1 COVID-19 (principal); M79.10 Myalgia, unspecified site; F17.200 Nicotine dependence, unspecified, uncomplicated; Z71.6 Tobacco abuse counseling; Z79.899 Other long term (current) drug therapy
CPT/HCPCS: 0241U; 99283

== ENCOUNTER 2020-02-04 06:35 | Emergency (ER) | payer OTHER, SELFPAY ==
[2020-02-04 06:38] VITALS: BP 156/106; PULSE 86; RESP 16; TEMP -13.6; TEMP 7.5; O2SAT 98; BMI 32.3
--- NOTE | 2020-02-04 07:00 | ED_ITS ---
HPI - Male Genitourinary General Chief complaint: Extremity Problem Stated complaint: foot pain Time Seen by Provider: 02/04/20 06:59 Source: patient Mode of arrival: ambulatory Limitations: no limitations History of Present Illness HPI Narrative: months of joint pain has been seen before in the past MD Complaint: other (squeezed pus from his penis this AM, hasn't had sex in 3 months, no lesions) Onset (ago): month(s) (aches for months, expression of purulence from penis just this AM) Duration: constant Location: penis Severity: mild Quality: aching Relieving factors: none Exacerbating factors: none Context: known STD exposure (denies activity in 3 months) Associated symptoms: Reports other (months of joint pain no trauma) Related Data Previous Rx's Medication Instructions Recorded cyclobenzaprine 10 mg PO Q8H PRN #20 tab 11/15/19 ibuprofen 600 mg PO Q6-8H PRN #30 tab 11/15/19 cephalexin [Keflex] 500 mg PO QID 10 Days #40 cap 11/19/19 doxycycline hyclate 100 mg PO BID #20 cap 11/19/19 lisinopril-hydrochlorothiazide 1 tab PO DAILY #30 tab 11/19/19 tramadol 50 mg PO Q6H PRN #20 tab 11/19/19 omeprazole 40 mg PO DAILY #30 cap 12/15/19 cyclobenzaprine 10 mg PO TID PRN #14 tab 12/19/19 prednisone 40 mg PO DAILY 5 Days #10 tab 12/19/19 cyclobenzaprine 10 mg PO TID PRN #15 tab 02/04/20 Allergies Allergy/AdvReac Type Severity Reaction Status Date / Time No Known Allergies Allergy Verified 11/19/19 08:34 Review of Systems Review of Systems: Constitutional : No Fever, No Chills, No Fatigue, No Malaise ENT/Mouth : No sore throat, No Rhinorrhea Eyes: No Eye Pain, No Swelling, No Redness Cardiovascular : No Chest Pain, No SOB, No Dyspnea on Exertion, No Orthopnea, No Edema, No Palpitations Respiratory : No Cough, No Sputum, No Wheezing Gastrointestinal : No Nausea, No Vomiting, No Diarrhea, No Constipation, No abdominal Pain Genitourinary : pos Dysuria, No Urinary Frequency Musculoskeletal : pos joint pain, No Myalgias, No Joint Swelling Skin : No Skin Lesions, No rash Neuro : No Weakness, No Numbness, No Dizziness, No Headache All other systems reviewed and are negative [facility] Past Medical History Attestation statement: The following information was validated with the patient. Medical History Asthma No known health problems Social History Social History Alcohol intake: current Alcohol intake frequency: a few times a week Alcohol type: hard liquor Smoking Status: Current every day smoker Use of substances other than those prescribed or required for medical reasons: No Advance Directives: No Advance Directives Information Provided: No Physical Exam 2 Vital Signs: Vital Signs: Last Vital Signs Temp 7.5 F L 02/04/20 06:38 Pulse 86 02/04/20 06:38 Resp 16 02/04/20 06:38 BP 156/106 H 02/04/20 06:38 Pulse Ox 98 02/04/20 06:38 Body Mass Index 32.3 Appearance: Alert. Oriented X3. No acute distress. Eyes: Pupils equal, round and reactive to light. ENT: Pharynx normal. Neck: Normal inspection. Neck supple. CVS: Normal heart rate and rhythm. Pulses normal. Respiratory: No respiratory distress. Breath sounds normal. Abdomen: Soft and nontender. : normal exam no lesions/swelling/no drainage noted Skin: Skin warm and dry. Normal skin color. Normal skin turgor. Extremities: No lower extremity edema. No calf ttp Neuro: Oriented X 3. No motor deficit. No sensory deficit. MDM - Male Genitourinary MDM Narrative Medical decision making narrative: 34 yo male with complaints of joint pain for months we have seen him in the past, no trauma - referred to PCP for workup, at this time the patient also c/o purulence from penis but normal exam today, denies sexual activity in last 3 months - wants G+C prophylaxis, UA and GC sent off - anticipate DC home Discharge Plan Discharge Clinical Impression: Dysuria Joint pain Qualifiers: Joint pain location: foot Laterality: bilateral Qualified Code(s): M25.571 - Pa in in right ankle and joints of right foot Patient Disposition: Home, Self-Care Instructions: Sexually Transmitted Diseases (ED), Arthralgia (ED) Additional Instructions: return to ED for any worsening symptoms or concerns you need to see a Primary Care for your chronic pain complaints and possibly be referred to a specialist you were treated for gonorrhea and chlamydia while in the ED today Prescriptions: New cyclobenzaprine 10 mg tablet 10 mg PO TID PRN (Reason: muscle spasm) Qty: 15 RF: 0 No Action doxycycline hyclate 100 mg capsule 100 mg PO BID Qty: 20 RF: 0 cephalexin [Keflex] 500 mg capsule 500 mg PO QID 10 Days Qty: 40 RF: 0 tramadol 50 mg tablet 50 mg PO Q6H PRN (Reason: pain) Qty: 20 RF: 0 lisinopril-hydrochlorothiazide 20-25 mg tablet 1 tab PO DAILY Qty: 30 RF: 1 omeprazole 40 mg capsule,delayed release(DR/EC) 40 mg PO DAILY Qty: 30 RF: 0 cyclobenzaprine 10 mg tablet 10 mg PO TID PRN (Reason: muscle spasm) Qty: 14 RF: 0 prednisone 20 mg tablet 40 mg PO DAILY 5 Days Qty: 10 RF: 0 cyclobenzaprine 10 mg tablet 10 mg PO Q8H PRN (Reason: muscle spasm) Qty: 20 RF: 0 ibuprofen 600 mg tablet 600 mg PO Q6-8H PRN (Reason: pain) Qty: 30 RF: 0 Referrals: Physician,Unknown [Primary Care Provider] - 1 week Stand Alone Forms: Work/School Release
[2020-02-04] MEDS: Azithromycin 500 MG TABLET 1000 MG PO (07:20)
[2020-02-04] MEDS: cefTRIAXone sodium 250 MG, Lidocaine HCl 1 % MPF 0.9 ML IM (07:21)
[2020-02-04 07:43] LABS: Glucose Urine UA NEG (NEG); Leukocyte Esterase Urine NEG (NEG); Nitrite Urine NEG (NEG); PH 5.5 (5.0-8.0); Specific Gravity - Urine >= 1.030 (1.005-1.025); Urine Blood NEG (NEG); Urine Ketones NEG (NEG); Urine Protein NEG (NEG-TRACE)
[2020-02-04 07:44] LABS: Appearance Urine CLEAR; Color Urine YELLOW
[2020-02-04 07:56] VITALS: BP 144/98; PULSE 66; RESP 18; O2SAT 98
[2020-02-06 13:02] LABS: C. trachomatis RNA TMA NOT DETECTED; N. gonorrhoeae RNA TMA NOT DETECTED
== END 2020-02-04 07:56 | disposition home or self-care (01) ==
PROVIDERS: Emergency Provider Emergency Medicine
DX: R30.0 Dysuria (principal); M25.571 Pain in right ankle and joints of right foot; Z20.2 Contact with and (suspected) exposure to infections with a predominantly sexual mode of transmission
CPT/HCPCS: 81003; 87491; 87591; 96372; 99284; J0696

== ENCOUNTER 2020-02-07 02:30 | Emergency (ER) | payer OTHER, SELFPAY ==
--- NOTE | 2020-02-07 | ECG_ITS ---
Test Reason : SYNCOPE Blood Pressure : / mmHG Vent. Rate : 089 BPM Atrial Rate : 089 BPM P-R Int : 132 ms QRS Dur : 118 ms QT Int : 372 ms P-R-T Axes : 050 -16 020 degrees QTc Int : 452 ms Normal sinus rhythm Leftward axis Borderline ECG When compared with ECG of 19-DEC-2019 09:12, Nonspecific T wave abnormality now evident in Lateral leads Referred By: Ritesh Jorge Electronically Signed By:KEESHA LAMB MD
[2020-02-07 02:36] VITALS: BP 142/85; PULSE 90; RESP 16; TEMP 36.6; O2SAT 93; O2SAT 94; BMI 33.0
--- NOTE | 2020-02-07 02:54 | ED_ITS ---
HPI - Syncope General Chief Complaint: Syncope Stated Complaint: PRE SYNCOPE,-COVID CONCERNS PER EMS Time Seen by Provider: 02/07/20 02:54 Source: patient Mode of arrival: EMS Limitations: no limitations History of Present Illness HPI narrative: History of alcohol use COVID positive on 01/10 was drinking few beers with friends felt lightheaded and passed out patient was given Narcan 4 baby aspirin and 1 tablet on nitro patient complaining of chest pain but he has chest pain frequently in the past with workup negative patient denies any use of cocaine MD complaint: loss of consciousness Onset (ago): minute(s) Prodromal symptoms: lightheaded Witnessed: Yes - by Bystander Context: standing up Injuries sustained associated with event: none Current symptoms: none Related Data Previous Rx's Medication Instructions Recorded cyclobenzaprine 10 mg PO Q8H PRN #20 tab 11/15/19 ibuprofen 600 mg PO Q6-8H PRN #30 tab 11/15/19 cephalexin [Keflex] 500 mg PO QID 10 Days #40 cap 11/19/19 doxycycline hyclate 100 mg PO BID #20 cap 11/19/19 lisinopril-hydrochlorothiazide 1 tab PO DAILY #30 tab 11/19/19 tramadol 50 mg PO Q6H PRN #20 tab 11/19/19 omeprazole 40 mg PO DAILY #30 cap 12/15/19 cyclobenzaprine 10 mg PO TID PRN #14 tab 12/19/19 prednisone 40 mg PO DAILY 5 Days #10 tab 12/19/19 cyclobenzaprine 10 mg PO TID PRN #15 tab 02/04/20 Allergies Allergy/AdvReac Type Severity Reaction Status Date / Time No Known Allergies Allergy Verified 11/19/19 08:34 Review of Systems Review of Systems: Constitutional : No Weight loss, No Fever, No Chills ENT/Mouth : No sore throat, No Rhinorrhea Eyes: No Eye Pain, No Swelling Cardiovascular : + Chest Pain, no palpitations Respiratory : No Cough, No Sputum, no shortness of breath Gastrointestinal : no Nausea, No Vomiting, No Diarrhea, No abdominal Pain, no black stools Genitourinary : No Dysuria, No Urinary Frequency Musculoskeletal : No joint pain, No Myalgias, No Joint Swelling Skin : No Skin Lesions, No rash Neuro : No Weakness, No Numbness, No Dizziness, No Headache Psych : No Anxiety/Panic, No Depression Heme/Lymph: No Bruising, No Lymphadenopathy Endocrine : No Polyuria, No Polydipsia All other systems reviewed and are negative PMFSH Past Medical History Medical History Asthma HTN (hypertension) Social History Social History Alcohol intake: current Alcohol intake frequency: a few times a week Alcohol type: hard liquor Smoking Status: Current every day smoker Advance Directives: No Physical Exam Vital Signs: Vital Signs: Last Vital Signs Temp 97.8 F 02/07/20 02:36 Pulse 90 02/07/20 02:36 Resp 16 02/07/20 02:36 BP 142/85 H 02/07/20 02:36 Pulse Ox 94 02/07/20 02:36 Body Mass Index 33.0 Appearance: Alert. Oriented X3. No acute distress. Intoxicated Eyes: Pupils equal, round and reactive to light. ENT: Pharynx normal. Neck: Normal inspection. Neck supple. CVS: Normal heart rate and rhythm. Pulses normal. Respiratory: No respiratory distress. Breath sounds normal. Abdomen: Soft and nontender. Bowel sounds are present, no mass palpable, no CVA tenderness Skin: Skin warm and dry. Normal skin color. Normal skin turgor. Extremities: No lower extremity edema. Neuro: Oriented X 3. No motor deficit. No sensory deficit. Course Course Course Narrative: Patient was taken by PD as he refused to stay in the ER and was drunk MDM - Syncope MDM Narrative Medical decision making narrative: Patient with alcohol abuse with syncope episode no cardiac arrhythmias noticed symptoms likely from alcohol use Differential Diagnosis Differential diagnosis: Likely syncope due to orthostatic hypotension and vasovagal syncope Lab Data Attestation: I reviewed the patient's lab results. Result diagrams: 02/07/20 02:58 02/07/20 02:58 Labs: Lab Results 02/07/20 02/07/20 02/07/20 Range/Units 02:58 02:58 02:58 WBC 9.9 (4.8-10.8) X10*3/uL RBC 4.44 L (4.60-5.80) X10*6/uL Hgb 14.9 (14.0-18.0) g/dl Hct 41.3 L (42-52) % MCV 93.0 (80-98) fL MCH 33.6 H (27.0-33.0) pg MCHC 36.1 H (31.0-36.0) g/dl RDW 11.7 (11.0-16.0) % Plt Count 356 D (160-400) X10*3/uL MPV 10.9 (9.4-12.4) fL Immature Gran % (Auto) 0.5 H (0.0-0.4) % Neut % (Auto) 44.1 L (45-73) % Lymph % (Auto) 50.6 H (20-40) % [place] % (Auto) 3.9 (2-11) % Eos % (Auto) 0.6 (0-4) % Baso % (Auto) 0.3 (0-2) % Lymph # (Auto) 5.0 H (1.2-4.9) X10*3/uL [place] # (Auto) 0.4 (0.1-1.2) X10*3/uL Eos # (Auto) 0.1 (0.0-0.4) X10*3/uL Baso # (Auto) 0.0 (0.0-0.2) X10*3/uL Abs Immat Gran (auto) 0.05 H (0.00-0.03) X10*3/uL Absolute Neuts (auto) 4.4 (2.0-8.3) X10*3/uL Absolute Nucleated RBC 0.000 (0.0-0.012) X10*3/uL Nucleated RBC % (auto) 0.0 (0.0-0.2) /100WBC Smear Tech's Comments VERIFIED Sodium (135-145) mmol/L Potassium (3.3-5.1) mmol/l Chloride (96-108) mmol/L Carbon Dioxide (22-29) mmol/L Anion Gap (12-20) BUN (9-16) mg/dL Creatinine (0.5-1.4) mg/dL Estim Creat Clear Calc Estimated GFR Random Glucose (60-115) mg/dL Calcium (8.4-10.2) mg/dL Magnesium (1.6-2.6) mg/dL Total Bilirubin (0.0-1.0) mg/dL Direct Bilirubin (0.0-0.5) mg/dL AST (5-37) U/L ALT (0-40) U/L Alkaline Phosphatase (39-117) U/L Troponin I High Sens < 3.5 (<3.5-35.0) ng/L Total Protein (6.5-8.0) g/dL Albumin (3.5-5.0) g/dL Urine Color Urine Appearance Urine pH (5.0-8.0) Ur Specific Jean (1.005-1.025) Urine Protein (NEG-TRACE) MG/DL Urine Glucose (UA) (NEG) MG/DL Urine Ketones (NEG) MG/DL Urine Blood (NEG) Urine Nitrite (NEG) Ur Leukocyte Esterase (NEG) Urine Opiates Screen (Not Detect) Ur Barbiturates Screen (Not Detect) Ur Phencyclidine Scrn (Not Detect) Ur Amphetamines Screen (Not Detect) U Benzodiazepines Scrn (Not Detect) Urine Cocaine Screen (Not Detect) U Marijuana (THC) Screen (Not Detect) Ethyl Alcohol 309 H* mg/dL 02/07/20 02/07/20 02/07/20 Range/Units 02:58 02:58 02:59 WBC (4.8-10.8) X10*3/uL RBC (4.60-5.80) X10*6/uL Hgb (14.0-18.0) g/dl Hct (42-52) % MCV (80-98) fL MCH (27.0-33.0) pg MCHC (31.0-36.0) g/dl RDW (11.0-16.0) % Plt Count (160-400) X10*3/uL MPV (9.4-12.4) fL Immature Gran % (Auto) (0.0-0.4) % Neut % (Auto) (45-73) % Lymph % (Auto) (20-40) % [place] % (Auto) (2-11) % Eos % (Auto) (0-4) % Baso % (Auto) (0-2) % Lymph # (Auto) (1.2-4.9) X10*3/uL [place] # (Auto) (0.1-1.2) X10*3/uL Eos # (Auto) (0.0-0.4) X10*3/uL Baso # (Auto) (0.0-0.2) X10*3/uL Abs Immat Gran (auto) (0.00-0.03) X10*3/uL Absolute Neuts (auto) (2.0-8.3) X10*3/uL Absolute Nucleated RBC (0.0-0.012) X10*3/uL Nucleated RBC % (auto) (0.0-0.2) /100WBC Smear Tech's Comments Sodium 137 (135-145) mmol/L Potassium 3.8 (3.3-5.1) mmol/l Chloride 104 (96-108) mmol/L Carbon Dioxide 17 L (22-29) mmol/L Anion Gap 20 (12-20) BUN 10 (9-16) mg/dL Creatinine 0.69 (0.5-1.4) mg/dL Estim Creat Clear Calc 185.9 Estimated GFR > 60 Random Glucose 92 (60-115) mg/dL Calcium 8.8 (8.4-10.2) mg/dL Magnesium 2.3 (1.6-2.6) mg/dL Total Bilirubin 0.4 (0.0-1.0) mg/dL Direct Bilirubin 0.2 (0.0-0.5) mg/dL AST 47 H D (5-37) U/L ALT 72 H (0-40) U/L Alkaline Phosphatase 61 D (39-117) U/L Troponin I High Sens (<3.5-35.0) ng/L Total Protein 8.4 H (6.5-8.0) g/dL Albumin 4.6 (3.5-5.0) g/dL Urine Color STRAW Urine Appearance CLEAR Urine pH 6.0 (5.0-8.0) Ur Specific Jean <= 1.005 (1.005-1.025) Urine Protein NEG (NEG-TRACE) MG/DL Urine Glucose (UA) NEG (NEG) MG/DL Urine Ketones NEG (NEG) MG/DL Urine Blood NEG (NEG) Urine Nitrite NEG (NEG) Ur Leukocyte Esterase NEG (NEG) Urine Opiates Screen Not Detected (Not Detect) Ur Barbiturates Screen Not Detected (Not Detect) Ur Phencyclidine Scrn Not Detected (Not Detect) Ur Amphetamines Screen Not Detected (Not Detect) U Benzodiazepines Scrn Not Detected (Not Detect) Urine Cocaine Screen Not Detected (Not Detect) U Marijuana (THC) Screen Not Detected (Not Detect) Ethyl Alcohol mg/dL ECG Data Attestation: I personally reviewed and interpreted this ECG as follows: Interpretation: Normal sinus rhythm heart rate 89 normal intervals normal axis no acute ST T wave changes impression normal EKG Discharge Plan Discharge Patient Disposition: Elopement Prescriptions: No Action doxycycline hyclate 100 mg capsule 100 mg PO BID Qty: 20 RF: 0 cephalexin [Keflex] 500 mg capsule 500 mg PO QID 10 Days Qty: 40 RF: 0 tramadol 50 mg tablet 50 mg PO Q6H PRN (Reason: pain) Qty: 20 RF: 0 lisinopril-hydrochlorothiazide 20-25 mg tablet 1 tab PO DAILY Qty: 30 RF: 1 omeprazole 40 mg capsule,delayed release(DR/EC) 40 mg PO DAILY Qty: 30 RF: 0 cyclobenzaprine 10 mg tablet 10 mg PO TID PRN (Reason: muscle spasm) Qty: 14 RF: 0 prednisone 20 mg tablet 40 mg PO DAILY 5 Days Qty: 10 RF: 0 cyclobenzaprine 10 mg tablet 10 mg PO TID PRN (Reason: muscle spasm) Qty: 15 RF: 0 cyclobenzaprine 10 mg tablet 10 mg PO Q8H PRN (Reason: muscle spasm) Qty: 20 RF: 0 ibuprofen 600 mg tablet 600 mg PO Q6-8H PRN (Reason: pain) Qty: 30 RF: 0 Discharge Date/Time: 02/07/20 03:41
[2020-02-07 03:09] LABS: Basophils Percent Auto 0.3 % (0-2); Eosinophils Absolute Auto 0.1 X10*3/uL (0.0-0.4); Eosinophils Percent Auto 0.6 % (0-4); Hematocrit 41.3 % (42-52); Hemoglobin 14.9 g/dl (14.0-18.0); Imm Gran Abs Auto 0.05 X10*3/uL (0.00-0.03); Imm Gran Pct Auto 0.5 % (0.0-0.4); Lymphocytes Percent Auto 50.6 % (20-40); MANUAL DIFF FLAG SCAN; Mean Corpuscular HGB Conc 36.1 g/dl (31.0-36.0); Mean Corpuscular Hemoglobin 33.6 pg (27.0-33.0); Mean Platelet Volume 10.9 fL (9.4-12.4); Monocytes Absolute Auto 0.4 X10*3/uL (0.1-1.2); Monocytes Percent Auto 3.9 % (2-11); Neutrophils Absolute Auto 4.4 X10*3/uL (2.0-8.3); Neutrophils Percent Auto 44.1 % (45-73); Platelet Count 356 X10*3/uL (160-400); Red Blood Count 4.44 X10*6/uL (4.60-5.80); Red Cell Distribution Width 11.7 % (11.0-16.0); SCAN SMEAR FLAG 1; White Blood Count 9.9 X10*3/uL (4.8-10.8)
[2020-02-07 03:11] LABS: Glucose Urine UA NEG (NEG); Leukocyte Esterase Urine NEG (NEG); Nitrite Urine NEG (NEG); Specific Gravity - Urine <= 1.005 (1.005-1.025); Urine Blood NEG (NEG); Urine Ketones NEG (NEG); Urine Protein NEG (NEG-TRACE)
[2020-02-07 03:13] LABS: Appearance Urine CLEAR; Color Urine STRAW; UACC Culture Trigger NO
--- NOTE | 2020-02-07 03:21 | PC.NURSE ---
PT GOT UP PULLED OFF MONITOR, B/P CUFF, AND PULLED OUT IV. PT WALKING WITH STEADY GAIT THRU WR TO [facility] AND WAS CAUGHT A BLOCK AWAY AND BROUGHT BACK BY SECURITY TO ROOM #18. PT AGAIN REQUESTING TO WALK OUT. PT ALERT, RESPIRATIONS EASY, N/L. SPEAKING IN FULL CLEAR SENTENCES. SECURITY IN ROOM CONVERSING WITH SECURITY. PT GIVEN A PHONE TO USE TO CALL [facility].
[2020-02-07 03:23] LABS: Amphetamine Screen Urine Not Detected (Not Detect); Barbiturates, Urine Not Detected (Not Detect); Benzodiazepines Screen Urine Not Detected (Not Detect); Cannabinoid Screen Urine Not Detected (Not Detect); Cocaine Screen Urine Not Detected (Not Detect); Opiate Screen Urine Not Detected (Not Detect); Phencyclidine Screen Urine Not Detected (Not Detect)
--- NOTE | 2020-02-07 03:33 | PC.NURSE ---
NO IV, PT WALKING WITH STEADY, EVEN GAIT, PT DENIES S/H IDEATION, A/V HALLUCINATIONS. PT IS ADAMANT HE IS NOT STAYING, PT EXPLAINED THE RISKS OF LEAVING AMA INCLUDING CONSEQUENCES INCLUDING MORBIDITY AND MORTALITY. HPD NOTIFIED AND IN EN-ROUTE TO FACILITY SAFETY AND EVALUATE IF THE PT NEEDS PROTECTIVE CUSTODY. PT WALKED OUT TO WITH SECURITY.
[2020-02-07 03:38] LABS: Ethanol 309 mg/dL
[2020-02-07 03:40] LABS: SLIDE REVIEW VERIFIED
[2020-02-07 03:42] LABS: Alanine Aminotransferase 72 U/L (0-40); Albumin Level 4.6 g/dL (3.5-5.0); Anion Gap 20 (12-20); Aspartate Amino Transferase 47 U/L (5-37); Bilirubin Direct 0.2 mg/dL (0.0-0.5); Bilirubin Total 0.4 mg/dL (0.0-1.0); Blood Urea Nitrogen 10 mg/dL (9-16); Calcium 8.8 mg/dL (8.4-10.2); Carbon Dioxide 17 mmol/L (22-29); Chloride 104 mmol/L (96-108); Creatinine Clr Calc Pharmacy 185.9; Estimated Glomerular Filt Rate > 60; Glucose Random 92 mg/dL (60-115); Magnesium 2.3 mg/dL (1.6-2.6); Potassium 3.8 mmol/l (3.3-5.1); Sodium 137 mmol/L (135-145); Total Protein 8.4 g/dL (6.5-8.0)
[2020-02-07 03:47] LABS: Troponin-I High Sensitivity < 3.5 ng/L (<3.5-35.0)
[2020-02-07 03:55] LABS: Alkaline Phosphatase 61 U/L (39-117)
== END 2020-02-07 03:41 | disposition left against medical advice (07) ==
LOC: HO.ED 03:36
PROVIDERS: Emergency Provider Internal Medicine
DX: F10.120 Alcohol abuse with intoxication, uncomplicated (principal); Y90.8 Blood alcohol level of 240 mg/100 ml or more; R55 Syncope and collapse; R07.89 Other chest pain; I10 Essential (primary) hypertension; F17.200 Nicotine dependence, unspecified, uncomplicated; Z86.19 Personal history of other infectious and parasitic diseases; Z79.899 Other long term (current) drug therapy
CPT/HCPCS: 36415; 80048; 80076; 80307; 80320; 81003; 83735; 84484; 85025; 93005; 96360; 99283; 99284

== ENCOUNTER 2020-02-19 06:54 | Emergency (ER) | payer OTHER, SELFPAY | END 2020-02-19 08:45 | disposition left against medical advice (07) | LOC: HO.ED 08:18 | PROVIDERS: Emergency Provider Emergency Medicine | DX: Z20.2 Contact with and (suspected) exposure to infections with a predominantly sexual mode of transmission (principal) ==

== ENCOUNTER 2020-07-15 09:13 | Emergency (ER) | payer BC, SELFPAY ==
--- NOTE | ~2020-07-15 | CT_ITS ---
EXAMINATION: CT HEAD WITHOUT CONTRAST CLINICAL INFORMATION: Headache COMPARISON: Previous head CT November 2011 TECHNIQUE: Contiguous axial imaging was performed from the skull base to vertex without intravenous administration of contrast. This CT examination was performed using dose optimization techniques as appropriate, variously including the following: *Automated exposure control *Adjustment of mA and/or kV according to patient size (this includes techniques or standardized protocols for targeted exams where dose is matched to indication/reason for exam; i.e. extremities or head) *Use of iterative reconstruction technique DLP: 847 mGy-cm FINDINGS: There is no evidence of acute intracranial hemorrhage or territorial infarction. No abnormal mass effect or midline shift is seen. Yoder to white matter differentiation is well preserved. No extra-axial fluid collections are identified. The ventricles are normal in size. There is no abnormal attenuation within the brain parenchyma. The osseous structures and soft tissues are normal. There are some polyps or cysts seen in the bilateral maxillary sinuses. Visualized paranasal sinuses, mastoid air cells and middle ears are otherwise clear. CT/CT head/brain wo con IMPRESSION: No acute intracranial findings. Polyps or cysts in the bilateral maxillary sinuses.
[2020-07-15 09:23] VITALS: BP 157/98; PULSE 71; RESP 16; TEMP 36.7; O2SAT 99; BMI 34.9
--- NOTE | 2020-07-15 09:32 | ED.GENADULT ---
HPI - General Adult General Chief complaint: Dental/Oral Stated complaint: dental pain Time Seen by Provider: 07/15/20 09:31 History of Present Illness HPI narrative: Patient complains of right-sided headache, right-sided facial pain, right ear pain and jaw pain for several weeks, headache is not associated with vomiting, no vision changes no numbness or weakness, he does not believe he has any toothache, no fever no chills no recent injury Related Data Previous Rx's Medication Instructions Recorded cyclobenzaprine 10 mg PO Q8H PRN #20 tab 11/15/19 ibuprofen 600 mg PO Q6-8H PRN #30 tab 11/15/19 cephalexin [Keflex] 500 mg PO QID 10 Days #40 cap 11/19/19 doxycycline hyclate 100 mg PO BID #20 cap 11/19/19 lisinopril-hydrochlorothiazide 1 tab PO DAILY #30 tab 11/19/19 tramadol 50 mg PO Q6H PRN #20 tab 11/19/19 omeprazole 40 mg PO DAILY #30 cap 12/15/19 cyclobenzaprine 10 mg PO TID PRN #14 tab 12/19/19 prednisone 40 mg PO DAILY 5 Days #10 tab 12/19/19 cyclobenzaprine 10 mg PO TID PRN #15 tab 02/04/20 amoxicillin-pot clavulanate 1 tab PO Q12H 10 Days #20 tab 07/15/20 [Augmentin] Allergies Allergy/AdvReac Type Severity Reaction Status Date / Time No Known Allergies Allergy Verified 11/19/19 08:34 Review of Systems Review of Systems: Positive for right-sided headache, facial pain, earache jaw pain No fever no chills no dizziness no weakness no fainting no seizures no feeling faint no confusion no vision change no nausea or vomiting no chest pain no shortness of breath no difficulty breathing or swallowing no abdominal pain no nausea vomiting diarrhea no dysuria no skin rash Yes all other systems are reviewed and are negative PMFSH Past Medical History Source: nursing notes reviewed Medical History Asthma HTN (hypertension) Social History Social History Alcohol intake: current Alcohol intake frequency: a few times a week Alcohol type: hard liquor Advance Directives: No Advance Directives Information Provided: No Physical Exam Vital Signs: Vital Signs: Last Vital Signs Temp 98.1 F 07/15/20 09:23 Pulse 71 07/15/20 09:23 Resp 16 07/15/20 09:23 BP 157/98 H 07/15/20 09:23 Pulse Ox 99 07/15/20 09:23 Body Mass Index 34.9 General appearance no acute distress The pupils equal round reactive to light, extraocular motions are intact, there is no sinus tenderness, TMJ is fully mobile without tenderness of the joint, The teeth do not have any tenderness, no obvious decay no fluctuant abscess of the gum The pharynx is normal in appearance without redness exudate or swelling of tonsils or uvula, voice is normal, no trismus no drooling Right tympanic membrane is red and inflamed, the canal it is normal Left ear is normal with a normal color canal and eardrum Exam of the teeth is normal there is no TMJ tenderness there is no swelling, pharynx is normal Neck is supple Chest is clear to auscultation bilateral Heart no murmur Abdomen soft nontender Extremities full range of motion x4 Neuro there is no gross deficits, cranial nerves 2-12 intact as tested, patient is A&O x3, communication both expression and understanding are normal, gait and balance are normal, motor is 5/5 x4, sensation is intact and symmetrical Course Course Course Narrative: Head CT did not show any acute bleed or mass Patient's right ear was red and he is treated for otitis media and recommended to follow with a dentist for more thorough exam of the teeth He remains comfortable throughout ER visit He is discharged on antibiotics Discharge Plan Discharge Clinical Impression: Otitis media Patient Disposition: Home, Self-Care Additional Instructions: CT scan of her head did not show any tumor or bleed or any dangerous cause of her headache Your right ear was red so we are treating for ear infection Follow with primary doctor Return any time any worse condition or concerns Your blood pressure was high so follow closely with primary doctor for evaluation of whether you need an adjustment to your blood pressure medication Follow with dentist as well for more complete evaluation for possible dental cause of pain Prescriptions: New amoxicillin-pot clavulanate [Augmentin] 875-125 mg tablet 1 tab PO Q12H 10 Days Qty: 20 RF: 0 No Action doxycycline hyclate 100 mg capsule 100 mg PO BID Qty: 20 RF: 0 cephalexin [Keflex] 500 mg capsule 500 mg PO QID 10 Days Qty: 40 RF: 0 tramadol 50 mg tablet 50 mg PO Q6H PRN (Reason: pain) Qty: 20 RF: 0 lisinopril-hydrochlorothiazide 20-25 mg tablet 1 tab PO DAILY Qty: 30 RF: 1 omeprazole 40 mg capsule,delayed release(DR/EC) 40 mg PO DAILY Qty: 30 RF: 0 cyclobenzaprine 10 mg tablet 10 mg PO TID PRN (Reason: muscle spasm) Qty: 14 RF: 0 prednisone 20 mg tablet 40 mg PO DAILY 5 Days Qty: 10 RF: 0 cyclobenzaprine 10 mg tablet 10 mg PO TID PRN (Reason: muscle spasm) Qty: 15 RF: 0 cyclobenzaprine 10 mg tablet 10 mg PO Q8H PRN (Reason: muscle spasm) Qty: 20 RF: 0 ibuprofen 600 mg tablet 600 mg PO Q6-8H PRN (Reason: pain) Qty: 30 RF: 0 Interventions: ED Discharge Assessment Last Done: 07/15/20 11:07 Discharge Date/Time: 07/15/20 11:08
[2020-07-15] MEDS: Amoxicillin/Potassium Clav 875 MG TABLET PO (11:04)
== END 2020-07-15 11:08 | disposition home or self-care (01) ==
PROVIDERS: Emergency Provider Emergency Medicine; PCP Nurse Practitioner Family
DX: R51.9 Headache, unspecified (principal); Z79.899 Other long term (current) drug therapy
CPT/HCPCS: 70450; 99283

== ENCOUNTER 2020-09-08 06:52 | Emergency (ER) | payer BC, SELFPAY ==
--- NOTE | ~2020-09-08 | US_ITS ---
EXAMINATION: US VENOUS ULTRASOUND WITH DOPPLER LOWER EXTREMITY, LEFT CLINICAL INFORMATION: Pain COMPARISON: None TECHNIQUE: Ultrasound of the deep veins is performed from the hip to the calf with compression sonography and color and pulse Doppler assessment. Spectral analysis with color-flow imaging is performed. FINDINGS: There is normal venous compression and respiratory variation and augmented flow. The visualized common femoral vein, superficial femoral vein, profunda femoral vein, popliteal vein, and the trifurcation region shows no evidence of deep venous thrombosis. There is a 6.4 x 1.3 x 2.8 cm popliteal fossa cyst. US/US venous duplex LE LT IMPRESSION: No DVT demonstrated in the left lower extremity. Pradhan's cyst.
[2020-09-08 07:25] VITALS: BP 136/90; PULSE 62; RESP 12; TEMP 36.6; O2SAT 96; BMI 34.7
--- NOTE | 2020-09-08 08:27 | ED_ITS ---
HPI - General Adult General Chief complaint: General Medical Stated complaint: leg pain Time Seen by Provider: 09/08/20 08:17 Source: patient Mode of arrival: ambulatory Limitations: no limitations History of Present Illness HPI narrative: 34-year-old male who presents emergency department for evaluation of pain and fullness behind the left knee. He states that the symptoms came on gradually and were intermittent but became constant over the past 24 hours. He states that the pain is located behind his left knee, he describes the pain as a constant, shooting achiness which does radiate down his leg to his foot. The pain is 8/10 at its worst. He does not perceive any significant change in the size of his left lower extremity compared to his right. The patient does have a history Leiden factor V deficiency. He denied fever, chills, chest pain, shortness of breath or dyspnea on exertion. 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 Related Data Previous Rx's Medication Instructions Recorded cyclobenzaprine 10 mg PO Q8H PRN #20 tab 11/15/19 ibuprofen 600 mg PO Q6-8H PRN #30 tab 11/15/19 cephalexin [Keflex] 500 mg PO QID 10 Days #40 cap 11/19/19 doxycycline hyclate 100 mg PO BID #20 cap 11/19/19 lisinopril-hydrochlorothiazide 1 tab PO DAILY #30 tab 11/19/19 tramadol 50 mg PO Q6H PRN #20 tab 11/19/19 omeprazole 40 mg PO DAILY #30 cap 12/15/19 cyclobenzaprine 10 mg PO TID PRN #14 tab 12/19/19 prednisone 40 mg PO DAILY 5 Days #10 tab 12/19/19 cyclobenzaprine 10 mg PO TID PRN #15 tab 02/04/20 amoxicillin-pot clavulanate 1 tab PO Q12H 10 Days #20 tab 07/15/20 [Augmentin] Allergies Allergy/AdvReac Type Severity Reaction Status Date / Time No Known Allergies Allergy Verified 11/19/19 08:34 Review of Systems Review of Systems: Yes all other systems are reviewed and are negative Neurologic: Reports Abnormal speech present [facility] Past Medical History [facility] Narrative: Past medical history: Hypertension, gout, factor 5 deficiency, alcohol use disorder. Surgical history: Patient states that he had a Pradhan cyst right knee requiring drainage, he also had 6 teeth extracted recently. Social history: The patient states that he vague stops nicotine daily. He drinks 1 L of vodka per day. He denies drug use. Medical History Asthma HTN (hypertension) Social History Social History Alcohol intake: current Alcohol intake frequency: 3 or more drinks per day Alcohol type: hard liquor Patient Tobacco Use Status: Current everyday Tobacco user Smoked in Last 30 Days: Yes Use of substances other than those prescribed or required for medical reasons: No Advance Directives: Yes Advance Directives Information Provided: Yes Advance Directives on File: No Physical Exam Vital Signs: Vital Signs: Last Vital Signs Temp 98.8 F 09/08/20 10:25 Pulse 55 09/08/20 10:25 Resp 18 09/08/20 10:25 BP 131/87 09/08/20 10:25 Pulse Ox 98 09/08/20 10:25 Body Mass Index 34.7 Const: General: cooperative and healthy appearing Orientation/consci ousness: oriented to person and oriented to place Limitations: no limitations HENMT: Head: Yes normal to inspection, Yes normocephalic and Yes atraumatic Ears: external ears normal General nose exam: Normal external nose present Face and sinus: Yes normal facial exam Mouth: Normal oral and palatal muco sa present Throat: Yes posterior oropharynx normal Eyes: Periorbital: periorbital findings normal Eyelids: Yes eyelids normal Conjunctivae: conjunctivae normal Sclerae: sclerae normal Corneas: corneas normal Pupils: Equal, round and reactive pupils present Direct Ophthalmoscopy: normal light reflex Neck: Neck: Yes full ROM, Yes no lymphadenopathy, Yes no meningeal signs, Yes trachea midline and Yes supple Chest: Chest palpation & inspection: normal inspection of the chest and normal palpation of entire chest wall Resp: Effort & Inspection: normal respiratory effort and able to speak in complete sentences Auscultation: clear to auscultation bilaterally Cardio: Rate: regular rate Rhythm: regular rhythm Heart sounds: S1 normal heart sound present, S2 normal heart sound present and no murmurs GI: Inspection: Yes normal to inspection Palpation (GI): Soft to palpation, nontender, no guarding, not rigid and No hepatosplenomegaly present : General: Yes no CVA tenderness Back/Spine/Pelvis: Back: no CVA tenderness Cervical Spine: normal cervical lordosis Thoracic/Lumbar Spine: thoracic and lumbar spine normal to inspection Skin: Lesions: no lesions Rashes: no rashes Wounds: no wounds Neuro: General: oriented to person, oriented to place and no meningeal signs Cranial nerves: Yes Equal, round and reactive pupils present Cognition (Neuro): normal cognition Speech: Abnormal speech present Motor exam (neuro): 5/5 motor strength present throughout Extrem: Other: No significant difference in the size of his left lower extremity compared to the right lower extremity, patient does have tenderness with palpation of the left popliteal fossa, no fullness perceived in this area, he has a positive Homans sign on the left but not on the right, see extremity is neurovascularly intact. 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 Physical examination did reveal positive Homans sign on the left negative on the right with tenderness with palpation of the left popliteal fossa. The patient's left and right lower extremities appear to be normal in size and no significant difference between the 2. I ordered a Doppler ultrasound the left lower extremity to rule out DVT versus Pradhan cyst. 1030: The patient's duplex ultrasound revealed a 6.4 x 1.3 x 2.8 cm left Pradhan cyst. There was no DVT noted. At this time, I believe that this Pradhan cyst explains the patient's pain and I did discuss this with him. I did warn him however that if he developed swelling of his left lower extremity, chest pain, shortness of breath, cough or fever then he should return to the emergency department for evaluation for possible DVT versus PE. The patient was given verbal and printed instructions prior to discharge. The patient was advised to follow-up with our on-call orthopedic doctor in 7 days and to return to the emergency department if his symptoms get worse or if he develop any new symptoms that are concerning to him. Discharge Plan Discharge Clinical Impression: Pradhan's cyst of knee Qualifiers: Laterality: left Qualified Code(s): M71.22 - Synovial cyst of popliteal space [Pradhan], left knee Patient Disposition: Home, Self-Care Instructions: Bakers Cyst (ED) Additional Instructions: The Doppler ultrasound of your left lower extremity revealed a 6.4 x 1.3 x 2.8 cm pradhan cyst which most likely explains her pain. There was no evidence for a DVT of your lower extremity. The Doppler ultrasound of the lower extremity is limited and can sometimes miss small blood clot especially if you have a blood clot from the ankle to the knee. If you develop increased swelling of your left lower extremity, increased pain or chest pain, shortness of breath, cough or fever then you should return to the emergency department to be re-evaluated for possible blood clot of your lower extremity or blood clot your lung. Follow-up with our orthopedic doctor on-call in 7 days. Please return to the emergency department if your symptoms get worse or if you develop any symptoms that are concerning to you. Prescriptions: No Action doxycycline hyclate 100 mg capsule 100 mg PO BID Qty: 20 RF: 0 cephalexin [Keflex] 500 mg capsule 500 mg PO QID 10 Days Qty: 40 RF: 0 tramadol 50 mg tablet 50 mg PO Q6H PRN (Reason: pain) Qty: 20 RF: 0 lisinopril-hydrochlorothiazide 20-25 mg tablet 1 tab PO DAILY Qty: 30 RF: 1 omeprazole 40 mg capsule,delayed release(DR/EC) 40 mg PO DAILY Qty: 30 RF: 0 cyclobenzaprine 10 mg tablet 10 mg PO TID PRN (Reason: muscle spasm) Qty: 14 RF: 0 prednisone 20 mg tablet 40 mg PO DAILY 5 Days Qty: 10 RF: 0 cyclobenzaprine 10 mg tablet 10 mg PO TID PRN (Reason: muscle spasm) Qty: 15 RF: 0 amoxicillin-pot clavulanate [Augmentin] 875-125 mg tablet 1 tab PO Q12H 10 Days Qty: 20 RF: 0 cyclobenzaprine 10 mg tablet 10 mg PO Q8H PRN (Reason: muscle spasm) Qty: 20 RF: 0 ibuprofen 600 mg tablet 600 mg PO Q6-8H PRN (Reason: pain) Qty: 30 RF: 0 Referrals: Stefan Lugo MD [Physician] - 1 week
[2020-09-08 09:41] VITALS: BP 126/85; PULSE 51; RESP 12; O2SAT 97
[2020-09-08 10:25] VITALS: BP 131/87; PULSE 55; RESP 18; TEMP 37.1; O2SAT 98
== END 2020-09-08 10:49 | disposition home or self-care (01) ==
PROVIDERS: Emergency Provider Emergency Medicine Emergency Medical Services
DX: M71.22 Synovial cyst of popliteal space [Baker], left knee (principal); M25.562 Pain in left knee; I10 Essential (primary) hypertension; F17.210 Nicotine dependence, cigarettes, uncomplicated
CPT/HCPCS: 93971; 99284

== ENCOUNTER 2020-09-15 08:22 | Outpatient (REF) | payer BC, SELFPAY ==
--- NOTE | ~2020-09-15 | XR_ITS ---
EXAMINATION: XR KNEE, LEFT CLINICAL INFORMATION: Left knee pain. COMPARISON: Left knee 11/15/2019 TECHNIQUE: Two views of the left knee. AP view is weightbearing FINDINGS: The tricompartment joint space is maintained normal. There is mild suprapatellar joint effusion suspected. No visible acute fracture, dislocation or bony erosive changes. There is sclerotic lesion in the distal femur measuring 1.3 cm. XR/XR knee LT 3V IMPRESSION: No acute fracture or dislocation. Small sclerotic lesion distal femur likely large bone island. This can be correlated with MRI.
== END 2020-09-15 08:23 | disposition home or self-care (01) ==
LOC: HO.XRAY 08:22
PROVIDERS: PCP Nurse Practitioner Family; Visit Provider Physician Assistant
DX: M71.22 Synovial cyst of popliteal space [Baker], left knee (principal)
CPT/HCPCS: 73562

== ENCOUNTER 2022-12-25 15:11 | Emergency (ER) | payer BC, SELFPAY ==
[2022-12-25 15:40] VITALS: BP 129/93; PULSE 75; RESP 16; TEMP 36.6; O2SAT 98; BMI 33.3
--- NOTE | 2022-12-25 15:41 | ED_ITS ---
HPI - Male Genitourinary General Chief complaint: Skin/Abscess/Foreign Body Stated complaint: scrotal rash Related Data Previous Rx's Medication Instructions Recorded ibuprofen 600 mg tablet 600 mg PO Q6-8H PRN pain #30 tabs 11/15/19 lisinopril 20 1 tab PO DAILY #30 tabs 11/19/19 mg-hydrochlorothiazide 25 mg tablet omeprazole 40 mg capsule,delayed 40 mg PO DAILY #30 caps 12/15/19 release naproxen 500 mg tablet 500 mg PO BID PRN pain 30 days #60 09/15/20 tabs Allergies Allergy/AdvReac Type Severity Reaction Status Date / Time No Known Allergies Allergy Verified 11/19/19 08:34 [facility] Past Medical History Medical History Asthma HTN (hypertension) Social History Social History Alcohol intake: current Alcohol intake frequency: 3 or more drinks per day Alcohol type: hard liquor Patient Tobacco Use Status: Current everyday Tobacco user Advance Directives: No Advance Directives Information Provided: No Physical Exam Vital Signs: Vital Signs: Last Vital Signs Temp 98 F 12/25/22 15:40 Pulse 75 12/25/22 15:40 Resp 16 12/25/22 15:40 BP 129/93 H 12/25/22 15:40 Pulse Ox 98 12/25/22 15:40 O2 Del Method Room Air 12/25/22 15:40 BMI result Body Mass Index 33.3 Course Course Course Narrative: This is rapid medical exam. Deferred additional HPI, ROS, PE to primary provider. 37 yo male with no known medical problems here with painful rash to his penis x several days. No new sexual partners or concern for STI. Not circumcised, has required antifungal creams in the past. Unable to visualize in triage VSS Discharge Plan Discharge Clinical Impression: Rash Patient Disposition: Left W/O Completing Treatment Prescriptions: No Action lisinopril-hydrochlorothiazide 20-25 mg tablet 1 tab PO DAILY Qty: 30 1RF omeprazole 40 mg capsule,delayed release(DR/EC) 40 mg PO DAILY Qty: 30 0RF ibuprofen 600 mg tablet 600 mg PO Q6-8H PRN (Reason: pain) Qty: 30 0RF naproxen 500 mg tablet 500 mg PO BID PRN (Reason: pain) 30 Days Qty: 60 0RF Discharge Date/Time: 12/25/22 18:42
== END 2022-12-25 18:42 | disposition left against medical advice (07) ==
PROVIDERS: Emergency Provider Emergency Medicine; PCP Pediatrics
DX: R21 Rash and other nonspecific skin eruption (principal)
CPT/HCPCS: 99281